=== PATIENT | female | born 1975 | race African-American/Black ===

== ENCOUNTER 2021-02-02 01:44 | Emergency (ER) | payer OTHER ==
[~2021-02-02] VITALS: Ht 160 cm; Wt 60.0 kg
[2021-02-02] MEDS ORDERED: LIDOCAINE HCL/EPINEPHRINE 1%-EPI 1:100,000 20 ML VIAL INFIL ONE (02:15)
[2021-02-02] MEDS ORDERED: TETANUS, DIPHTHERIA, PERTUSSIS VAC/PF 0.5ML (>10YR OLD) IM ONE (02:15)
[2021-02-02] MEDS ORDERED: BACITRACIN ZINC OINT UDPKT TOP ONE (02:15)
[2021-02-02] MEDS ORDERED: KETOROLAC 30MG/ML VIAL IM ONE (03:45)
[2021-02-02 05:21] VITALS: BP 145/88
[2021-02-02] MEDS ORDERED: AMOX-424 MT (06:30)
[2021-02-02] MEDS ORDERED: T3 PO (06:30)
[2021-02-02] MEDS ORDERED: NAPR-681 MT (06:30)
== END 2021-02-02 06:41 | disposition home or self-care (01) ==
LOC: ER 01:44
DX: S01.81XA Laceration without foreign body of other part of head, initial encounter (principal); S63.591A Other specified sprain of right wrist, initial encounter; R00.0 Tachycardia, unspecified; Y93.01 Activity, walking, marching and hiking; Y92.480 Sidewalk as the place of occurrence of the external cause; F10.129 Alcohol abuse with intoxication, unspecified; Y90.9 Presence of alcohol in blood, level not specified
CPT/HCPCS: 12013; 70450; 70486; 73110; 90471; 90715; 93005; 96372; 99284; J1885; J3490; Z7610